=== PATIENT | male | born 1995 | race Caucasian/White ===

== ENCOUNTER → 2020-08-08 10:27 | Outpatient (CLI) | payer OTHER, SELFPAY ==
--- NOTE | 2020-08-08 | DI.RAD.S_ITS ---
PROCEDURE: FL SHOULDER INJECTION MR/CT LT INDICATIONS: PAIN IN LEFT SHOULDER COMPARISON: None. TECHNIQUE: The indications, alternatives, benefits, risks, and complications of the procedure were explained to the patient. Written informed consent was obtained and placed in the chart. The shoulder was examined fluoroscopically and a site for needle placement chosen for entry into the glenohumeral joint from an anterior approach. The skin was prepped and draped in a sterile fashion, and 1% lidocaine infiltrated from skin down to joint capsule. A spinal needle was inserted into the glenohumeral joint, and a small amount of iodinated contrast media injected to confirm intra-articular placement of the needle tip. This was followed by approximately 12 mL dilute solution of a gadolinium containing MR contrast agent. The needle was removed and a dressing was applied. The patient was given postprocedural instructions and sent to the MR suite for MR imaging. FINDINGS: A single fluoroscopic spot image demonstrates intra-articular location of injected iodinated contrast. IMPRESSION: Successful fluoroscopically guided administration of dilute Gadolinium solution into the shoulder joint for MR arthrogram. Dictated by: Jason Short M.D. on 08/08/2020 at 13:30 Approved by: Jason Short M.D. on 08/08/2020 at 13:31
--- NOTE | 2020-08-08 | DI.MRI.S_ITS ---
PROCEDURE: MR SHOULDER LT W CON INDICATIONS: PAIN IN LEFT SHOULDER TECHNIQUE: After the administration of 12 mL of dilute intra-articular Gadolinium contrast, oblique coronal T1 and T2 spin echo with fat saturation, oblique sagittal T1 spin echo with and without fat saturation, oblique sagittal T2 fast spin echo with fat saturation, axial T1 spin echo with fat saturation through the shoulder. COMPARISON: None. FINDINGS: Image quality: Excellent. Rotator cuff: Distal supraspinatus tendinosis is seen at its insertion on the humeral head. The infraspinatus, and subscapularis tendons appear intact throughout. No rotator cuff muscle atrophy on sagittal images. Bones and bursae: No bone marrow contusions or fractures. Very mild acromioclavicular joint osteoarthritic changes are seen with small downward osteophyte formation depressing the musculotendinous junction of supraspinatus. Capsule and soft tissues: The labrum and glenohumeral ligaments appear intact. The long head of the biceps tendon demonstrates normal location and morphology. The rotator interval appears normal, without fibrosis. The coracohumeral ligament is of normal thickness. No intra-articular bodies. IMPRESSION: 1. Distal supraspinatus tendinosis at its insertion on the humeral head. No rotator cuff tendon rupture. No muscle atrophy. 2. Very mild acromioclavicular joint osteoarthritis. 3. No evidence of focal labral tear. Dictated by: Enrique Schilling M.D. on 08/08/2020 at 13:48 Approved by: Enrique Schilling M.D. on 08/08/2020 at 14:31
== END ==
PROVIDERS: PCP Family Medicine; Referring Provider Family Medicine; Visit Provider Family Medicine
DX: M25.512 Pain in left shoulder (principal); M19.012 Primary osteoarthritis, left shoulder
CPT/HCPCS: 23350; 73222; 77002

== ENCOUNTER 2021-08-17 21:18 | Emergency (ER) | payer OTHER, SELFPAY ==
[2021-08-17 21:30] VITALS: BP 125/74; PULSE 80; RESP 18; TEMP 36.6; O2SAT 99
--- NOTE | 2021-08-17 21:43 | DI.RAD.S_ITS ---
PROCEDURE: XR LUMBAR SPINE 2-3V INDICATIONS: GLF and injured lower back TECHNIQUE: 3 views of the lumbar spine were acquired. COMPARISON: None. FINDINGS: Bones: 5 [id number] vertebrae are present. There is preserved bony alignment. There is a mild superior endplate compression deformity of the L1 vertebral body of indeterminate acuity, with approximately 25% loss of height anteriorly. No retropulsed fragments in the spinal canal. There is mild facet arthropathy in the lower lumbar spine. No suspicious bony lesions. Soft tissues: Overlying bowel gas pattern is normal. No suspicious soft tissue calcifications. IMPRESSION: 1. Mild superior endplate compression deformity of the L1 vertebral body of indeterminate acuity. No retropulsed fragments in the spinal canal. If an acute fracture is clinically suspected, further evaluation may be obtained with CT or MRI if indicated. Dictated by: Vito Ho M.D. on 08/18/2021 at 0:11 Approved by: Vito Ho M.D. on 08/18/2021 at 0:14
--- NOTE | 2021-08-31 23:51 | PM.EVENT ---
Event Note Event Note (Rapid Response, Code, or fall): Patient left VD, but had an abnormal finding on Xray. I attempted to call him this evening, but there was no answer. I left a voice mail requesting a call back.
== END 2021-08-17 23:45 | disposition left against medical advice (07) ==
PROVIDERS: Emergency Provider Emergency Medicine; PCP Family Medicine
DX: S39.92XA Unspecified injury of lower back, initial encounter (principal); W19.XXXA Unspecified fall, initial encounter
CPT/HCPCS: 72100; 99281